=== PATIENT | female | born 1990 | race Caucasian/White ===

== ENCOUNTER 2025-04-24 22:02 | Emergency (ER) | payer BC ==
[2025-04-24 22:29] LABS: BASOPHILS ABSOLUTE AUTO 0.01 K/uL (0.00-0.20); BASOPHILS PERCENT AUTO 0.1 % (0.0-1.0); EOSINOPHILS ABSOLUTE AUTO 0.01 K/uL (0.00-0.45); EOSINOPHILS PERCENT AUTO 0.1 % (0.0-6.0); IMMATURE GRAN ABSOLUTE AUTO 0.02 K/uL (0.00-0.05); IMMATURE GRAN PERCENT AUTO 0.3 % (0.0-0.4); LYMPHOCYTES ABSOLUTE AUTO 1.66 K/uL (1.00-4.80); LYMPHOCYTES PERCENT AUTO 22.0 % (24.0-44.0); MEAN PLATELET VOLUME 9.8 fL (9.4-12.3); MONOCYTES ABSOLUTE AUTO 0.35 K/uL (0.00-0.80); MONOCYTES PERCENT AUTO 4.6 % (0.0-8.0); NEUTROPHILS ABSOLUTE AUTO 5.50 K/uL (1.80-7.70); NEUTROPHILS PERCENT AUTO 72.9 % (41.0-71.0); NRBC ABSOLUTE 0.00 K/uL (0.00-0.02); NRBC PERCENT 0.0 /100WBC (0.0-0.2); PLATELET COUNT,PLT 355 K/uL (150-400); RED BLOOD CELL COUNT 4.32 M/uL (4.10-5.30); WHITE BLOOD CELL COUNT,WBC 7.55 K/uL (3.9-11.3)
[2025-04-24] MEDS: Sucralfate Suspension 1 GM/10 ML Cup PO ONE (22:31)
[2025-04-24] MEDS: Ketorolac 30 MG/ML SDV IVPUSH ONE (22:31)
[2025-04-24] MEDS: Ondansetron 4 MG/2 ML SDV IVPUSH ONE (22:32)
[2025-04-24 22:43] LABS: GLUCOSE,URINE NEGATIVE (NEGATIVE); OCCULT BLOOD,URINE NEGATIVE (NEGATIVE)
[2025-04-24 22:50] LABS: APPEARANCE,URINE HAZY
[2025-04-24 22:51] LABS: A/G RATIO 1.0 (0.9-1.6); ALANINE AMINOTRANSFERASE,ALT 19 IU/L (14-63); ASPARTATE AMNIOTRANSFERASE,AST 33 IU/L (15-37); BILIRUBIN TOTAL 0.5 mg/dL (0.2-1.0); BLOOD UREA NITROGEN,BUN 18 mg/dL (7.0-18.0); CARBON DIOXIDE,CO2 27.6 mmol/L (21.0-32.0); CHLORIDE,CL 104 mmol/L (98-107); CREATININE 0.8 mg/dL (0.6-1.0); GLUCOSE RANDOM 93 mg/dL (74-106); POTASSIUM,K 3.5 mmol/L (3.5-5.1); PROTEIN TOTAL,TP 7.7 g/dL (6.4-8.2); SODIUM,NA 140 mmol/L (136-145)
[2025-04-24 22:51] LABS: EPITHELIAL CELLS,URINE MODERATE (NONE-FEW); FINE GRANULAR CASTS,URINE OCCASIONAL (NEGATIVE)
[2025-04-24 22:52] LABS: ESTIMATED GFR 98 mL/min (>60)
[2025-04-24] MEDS: Iopamidol 755 MG/ML 500 ML Multipack Bottle IVPUSH STA (23:30)
== END 2025-04-25 00:24 | disposition home or self-care (01) ==
LOC: MW.ED 22:02
DX: N39.0 Urinary tract infection, site not specified (principal); K21.9 Gastro-esophageal reflux disease without esophagitis; J45.909 Unspecified asthma, uncomplicated; Z79.899 Other long term (current) drug therapy; Z88.8 Allergy status to other drugs, medicaments and biological substances; Z91.048 Other nonmedicinal substance allergy status; Z91.030 Bee allergy status; Z91.018 Allergy to other foods
CPT/HCPCS: 36415; 74177; 80053; 81001; 81025; 83605; 83690; 85025; 96361; 96374; 96375; 99284; A9270; J1885; J2405; J7030; Q9967; 99283

== ENCOUNTER 2025-06-15 10:03 | Day surgery (SDC) | payer BC ==
[~2025-06-15 10:03] MED LIST: Sodium Chloride 0.9% 10 ML Syringe FLUSH PRN; Sodium Chloride 0.9% 2.5 ML Syringe FLUSH PRN
[2025-06-15] MEDS: Lactated Ringers 1,000 ML IV SCH (10:28)
[2025-06-15] MEDS ORDERED: Ketamine HCL/NACL, ISO-OSM 50 MG/5 ML Syringe ONE (10:45)
[2025-06-15] MEDS ORDERED: propofoL 500 MG/50 ML 50 ML ONE (10:51)
[2025-06-15] MEDS ORDERED: Ondansetron 4 MG/2 ML SDV ONE (10:53)
== END 2025-06-15 11:53 | disposition home or self-care (01) ==
LOC: MW.SDS 10:03
PROVIDERS: ATTEND Surgery
DX: K52.9 Noninfective gastroenteritis and colitis, unspecified (principal); K62.5 Hemorrhage of anus and rectum; R10.11 Right upper quadrant pain; Z88.7 Allergy status to serum and vaccine; Z91.09 Other allergy status, other than to drugs and biological substances; Z79.899 Other long term (current) drug therapy
CPT/HCPCS: 43239; 45380; 81025; J2405; J2704; J7120; 00813; J3490

== ENCOUNTER 2025-06-20 07:58 | Day surgery (SDC) | payer BC ==
[~2025-06-20 07:58] MED LIST changes: +Albuterol 0.083% 2.5 MG/3 ML Neb Soln NEB PRN; +Lactated Ringers 1,000 ML IV SCH; +Naloxone 0.4 MG/ML SDV IVPUSH PRN; +Ondansetron 4 MG/2 ML SDV IVPUSH PRN; +Scopalamine 1mg/3day Transdermal Patch TOP ONE; +ceFAZolin 2 GM in Water For Injection, Sterile 20 ML IVPUSH ONE; +fentaNYL 50 MCG/ML SDV IVPUSH PRN
[2025-06-20] MEDS ORDERED: Ropivacaine 0.5% 5 MG/ML 30 ML SDV ONE (08:39)
[2025-06-20] MEDS ORDERED: Morphine 10 MG/ML SDV ONE (08:40)
[2025-06-20] MEDS ORDERED: fentaNYL 100 MCG/2 ML SDV ONE (08:40)
[2025-06-20] MEDS ORDERED: Ketamine HCL/NACL, ISO-OSM 50 MG/5 ML Syringe ONE (08:40)
[2025-06-20] MEDS ORDERED: propofoL 500 MG/50 ML 50 ML ONE ×3 (08:40→11:56)
[2025-06-20] MEDS ORDERED: Propofol 200 MG/20 ML SDV ONE (08:40)
[2025-06-20] MEDS: Lactated Ringers 1,000 ML IV SCH (08:44)
[2025-06-20] MEDS ORDERED: Indocyanine Green 25 MG SDV ONE (10:38)
[2025-06-20] MEDS ORDERED: Esmolol 100 MG/10 ML SDV ONE (10:38)
[2025-06-20] MEDS ORDERED: Ondansetron 4 MG/2 ML SDV ONE (11:01)
[2025-06-20] MEDS ORDERED: Dexamethasone 4 MG/ML 5 ML MDV ONE (11:01)
[2025-06-20] MEDS ORDERED: Ketorolac 30 MG/ML SDV ONE (11:21)
[2025-06-20] MEDS: Acetaminophen/oxyCODONE 325-5 MG Tab PO ONE (13:37)
== END 2025-06-20 13:57 | disposition home or self-care (01) ==
LOC: MW.SDS 07:58
PROVIDERS: ATTEND Surgery
DX: K80.10 Calculus of gallbladder with chronic cholecystitis without obstruction (principal); K43.2 Incisional hernia without obstruction or gangrene; F41.9 Anxiety disorder, unspecified; Z88.7 Allergy status to serum and vaccine; Z88.8 Allergy status to other drugs, medicaments and biological substances; Z91.030 Bee allergy status; Z91.018 Allergy to other foods; Z79.899 Other long term (current) drug therapy
CPT/HCPCS: 47562; 81025; A9270; J0665; J0690; J1100; J1171; J1308; J1805; J1885; J2003; J2272; J2405; J2704; J2795; J3010; J7120; J7999; J2371; J3490